=== PATIENT | male | born 1995 | race African-American/Black ===

== ENCOUNTER 2017-02-06 23:56 | Emergency (ER) | payer MEDICAID, OTHER ==
[~2017-02-06] VITALS: Ht 177.8 cm; Wt 63.0 kg
[2017-02-07] MEDS ORDERED: KETOROLAC 30MG/ML VIAL IV ONE (04:45)
[2017-02-07] MEDS ORDERED: ONDANSETRON 4MG ODT PO PRN (04:45)
[2017-02-07] MEDS ORDERED: BACITRACIN ZINC OINT UDPKT TOP ONE (04:45)
[2017-02-07] MEDS ORDERED: LIDOCAINE HCL 1% 20ML VIAL (Pyxis) INJ INFIL ONE (04:45)
[2017-02-07] MEDS ORDERED: SODIUM CHLORIDE 0.9% 1,000 ML IV ONE (05:10)
[2017-02-07] MEDS ORDERED: VANCOMYCIN 1 G PREMIX 200 ML IV SCH (05:15)
[2017-02-07] MEDS ORDERED: MORPHINE SULFATE 2 MG/ML CPJ (NOT FOR IM USE) IV ONE (06:45)
[2017-02-07 11:00] VITALS: BP 118/65
== END 2017-02-07 11:06 | disposition short-term general hospital (02) ==
LOC: ER 23:56
DX: S68.123A Partial traumatic metacarpophalangeal amputation of left middle finger, initial encounter (principal); F12.10 Cannabis abuse, uncomplicated; W22.8XXA Striking against or struck by other objects, initial encounter; Y93.89 Activity, other specified; Y92.018 Other place in single-family (private) house as the place of occurrence of the external cause
CPT/HCPCS: 73130; 96365; 96375; 99285; J1885; J2270; J3370; J3490; J7030; Q0162; Z7610; A4565